=== PATIENT | male | born 1995 | race Caucasian/White ===

== ENCOUNTER 2018-11-24 08:53 | Emergency (ER) | payer OTHER, SELFPAY ==
[~2018-11-24] VITALS: Ht 180.3 cm; Wt 65.5 kg
[2018-11-24 08:54] VITALS: BP 119/56
--- NOTE | 2018-11-24 09:34 | REP ---
Clinical: Pain with recent trauma/fall . Technique: AP, lateral, bilateral oblique views left ankle . Findings: No acute fracture or dislocation. Skeletal structures and joint spaces are intact and normal. Ankle mortise appears stable. No subcutaneous emphysema or radiodense foreign body. Impression: Normal left ankle radiograph series. Electronically Signed by Luis Chavez MD 11/24/2018 09:25 A
== END 2018-11-24 10:04 | disposition home or self-care (01) ==
LOC: M ED 08:53
DX: S93.412A Sprain of calcaneofibular ligament of left ankle, initial encounter (principal); W19.XXXA Unspecified fall, initial encounter; Y92.9 Unspecified place or not applicable; Y93.9 Activity, unspecified; Y99.9 Unspecified external cause status